=== PATIENT | male | born 1935 | race Caucasian/White ===

== ENCOUNTER 2023-03-17 13:19 | Inpatient (IN) | payer MEDICARE, MEDICAID ==
[~2023-03-17] VITALS: Ht 162.6 cm; Wt 66.2 kg
[2023-03-17] MEDS ORDERED: IV NS 0.9% 500 ML BAG IV ONE (13:30)
[2023-03-17] MEDS ORDERED: POLY17PO4 PO (14:08)
[2023-03-17] MEDS ORDERED: BISA10SU11 RC (14:08)
[2023-03-17] MEDS ORDERED: CLOP75TA15 PO (14:08)
[2023-03-17] MEDS ORDERED: MONT10TA22 PO (14:08)
[2023-03-17] MEDS ORDERED: TIMO5DRO18 EACHEYE (14:08)
[2023-03-17] MEDS ORDERED: APIX2.5T PO (14:08)
[2023-03-17] MEDS ORDERED: LISI10TA29 PO (14:08)
[2023-03-17] MEDS ORDERED: INSU100V7 SQ (14:08)
[2023-03-17] MEDS ORDERED: LIDO30AD10 TP (14:08)
[2023-03-17] MEDS ORDERED: ASCO-352 PO (14:08)
[2023-03-17] MEDS ORDERED: MAG30ORA PO (14:08)
[2023-03-17] MEDS ORDERED: RANO500T6 PO (14:08)
[2023-03-17] MEDS ORDERED: GLUC1KIT SQ (14:08)
[2023-03-17] MEDS ORDERED: MULT-594 PO (14:08)
[2023-03-17] MEDS ORDERED: MELA5TAB PO (14:08)
[2023-03-17] MEDS ORDERED: TOLT2TAB2 PO (14:08)
[2023-03-17] MEDS ORDERED: EPIN0.3P3 IM (14:08)
[2023-03-17] MEDS ORDERED: CLON0.1T PO (14:08)
[2023-03-17] MEDS ORDERED: GABA300C PO (14:08)
[2023-03-17] MEDS ORDERED: AMIO200T7 PO (14:08)
[2023-03-17] MEDS ORDERED: DIVA125T32 PO (14:08)
[2023-03-17] MEDS ORDERED: ALBU2.5V38 IH (14:08)
[2023-03-17] MEDS ORDERED: MAGN400O6 PO (14:08)
[2023-03-17] MEDS ORDERED: DOCU-141 PO (14:08)
[2023-03-17] MEDS ORDERED: ATOR10TA PO (14:08)
[2023-03-17 14:34] LABS: BASOPHILS % (AUTO) 0.6 % (0.0-2.0); EOSINOPHILS % (AUTO) 0.5 % (0.0-6.0); HEMATOCRIT 47 % (39-51); HEMOGLOBIN 16.6 g/dL (13.5-17.5); LYMPHOCYTES # (AUTO) 1.2 K/uL (0.8-4.8); LYMPHOCYTES % (AUTO) 16.5 % (20.0-44.0); MEAN CORPUSCULAR HEMOGLOBIN 31 PG (26.0-33.0); MEAN CORPUSCULAR HGB CONC 35 g/dl (31.0-36.0); MEAN CORPUSCULAR VOLUME 89 fL (80-96); MONOCYTES # (AUTO) 0.9 K/uL (0.1-1.30); NEUTROPHILS # (AUTO) 5.1 K/uL (1.8-8.9); NEUTROPHILS % (AUTO) 70.4 % (43.0-81.0); PLATELET COUNT (AUTO) 297 K/uL (150-450); RED BLOOD CELL COUNT(AUTO) 5.27 MIL/uL (4.5-6.0); WHITE BLOOD COUNT (AUTO) 7.2 K/uL (4.3-11.0)
[2023-03-17 14:57] LABS: CALCIUM, SERUM 10.2 mg/dL (8.5-10.1); CARBON DIOXIDE 27 mmol/L (21-32); CHLORIDE 103 mmol/L (98-107); CREATININE 1.9 mg/dL (0.6-1.3); GLUCOSE 137 mg/dL (74-106); POTASSIUM 4.6 mmol/L (3.5-5.1); SODIUM SERUM 140 mmol/L (136-145); UREA NITROGEN, BLOOD 35 mg/dL (7-18)
[2023-03-17] MEDS ORDERED: MORPHINE SULFATE INJ 2 MG/ML DISP.SYRIN IV PRN (15:00)
[2023-03-17] MEDS ORDERED: CLONIDINE HCL 0.1 MG TABLET PO PRN (15:00)
[2023-03-17] MEDS ORDERED: BISACODYL SUPP (10 MG) 10 MG/SUPP.RECT SUPP.RECT RC PRN (15:00)
[2023-03-17] MEDS ORDERED: MAG HYDROX/AL HYDROX/SIMETH 30 ML UDC PO PRN ×2 (15:00)
[2023-03-17] MEDS ORDERED: Z GUARD REMEDY 4 OZ OINT TP PRN (15:00)
[2023-03-17] MEDS ORDERED: POLYETHYLENE GLYCOL 3350 17 GM POWD.PACK PO PRN (15:00)
[2023-03-17] MEDS ORDERED: HYDROCODONE/APAP 5/325MG TABLET PO PRN (15:00)
[2023-03-17] MEDS ORDERED: MAGNESIUM HYDROXIDE 30 ML UDC PO PRN (15:00)
[2023-03-17] MEDS ORDERED: TRAMADOL HCL 50 MG TABLET PO PRN (15:00)
[2023-03-17] MEDS ORDERED: ONDANSETRON HCL/PF 4 MG/2 ML VIAL IVP PRN (15:00)
[2023-03-17] MEDS ORDERED: ACETAMINOPHEN 325 MG TABLET PO PRN (15:00)
[2023-03-17 15:01] LABS: ALANINE AMINOTRANSFERASE 47 U/L (12-78); ALBUMIN 3.6 g/dL (3.4-5.0); ALKALINE PHOSPHATASE 98 U/L (46-116); ASPARTATE AMINOTRANSFERASE 46 U/L (15-37); BILIRUBIN,DIRECT 0.2 mg/dL (0.0-0.2); BILIRUBIN,TOTAL 0.4 mg/dL (0.2-1.0); LIPASE 33 U/L (16-77); TOTAL PROTEIN, SERUM 8.3 g/dL (6.4-8.2)
[2023-03-17] MEDS: TOLTERODINE 2 MG TABLET PO SCH (17:00)
[2023-03-17 20:00] VITALS: BP 144/55; TEMP 97.8; O2SAT 94
[2023-03-17] MEDS: GABAPENTIN 300 MG CAPSULE PO SCH (21:07)
[2023-03-17] MEDS: DIVALPROEX SODIUM 125 MG TABLET.DR PO SCH (21:07)
[2023-03-17] MEDS: RANOLAZINE 500 MG TAB.ER.12H PO SCH (21:07)
[2023-03-17] MEDS: APIXABAN 2.5 MG TABLET PO SCH (21:09)
[2023-03-17] MEDS: DOCUSATE SODIUM 100 MG CAPSULE PO SCH (22:44)
[2023-03-17] MEDS: MONTELUKAST SODIUM (10MG) 10 MG TABLET PO SCH (22:44)
[2023-03-17] MEDS ORDERED: TOLTERODINE 2 MG CAP.SR PO ONE (23:05)
[2023-03-18] MEDS: IV NS 0.9% 1,000 ML IV PRN (07:02)
[2023-03-18] MEDS: CLOPIDOGREL BISULFATE 75 MG TABLET PO SCH ×2 (08:10→08:42)
[2023-03-18] MEDS: GABAPENTIN 300 MG CAPSULE PO SCH ×4 (08:10→17:35)
[2023-03-18] MEDS: DIVALPROEX SODIUM 125 MG TABLET.DR PO SCH ×4 (08:10→17:35)
[2023-03-18] MEDS: LIDOCAINE 5% (PATCH) 1 EA PATCH TP SCH ×2 (08:10→08:44)
[2023-03-18] MEDS: ASCORBIC ACID 500 MG TABLET PO SCH ×2 (08:10→08:42)
[2023-03-18] MEDS: APIXABAN 2.5 MG TABLET PO SCH ×2 (08:21→17:36)
[2023-03-18] MEDS: RANOLAZINE 500 MG TAB.ER.12H PO SCH ×3 (08:23→17:35)
[2023-03-18] MEDS: AMIODARONE HCL 200 MG TABLET PO SCH (08:23)
[2023-03-18] MEDS: TOLTERODINE 2 MG TABLET PO SCH ×4 (08:44→17:35)
[2023-03-18] MEDS ORDERED: LISINOPRIL (10MG) 10 MG TABLET PO SCH (09:00)
[2023-03-18 11:43] LABS: BASOPHILS # (AUTO) 0.1 K/uL (0.0-0.2); BASOPHILS % (AUTO) 0.8 % (0.0-2.0); EOSINOPHILS % (AUTO) 0.1 % (0.0-6.0); HEMATOCRIT 42 % (39-51); HEMOGLOBIN 14.6 g/dL (13.5-17.5); LYMPHOCYTES # (AUTO) 1.1 K/uL (0.8-4.8); LYMPHOCYTES % (AUTO) 10.8 % (20.0-44.0); MEAN CORPUSCULAR HEMOGLOBIN 32 PG (26.0-33.0); MEAN CORPUSCULAR HGB CONC 35 g/dl (31.0-36.0); MEAN CORPUSCULAR VOLUME 91 fL (80-96); MONOCYTES % (AUTO) 9.9 % (2.0-12.0); NEUTROPHILS # (AUTO) 7.8 K/uL (1.8-8.9); NEUTROPHILS % (AUTO) 78.4 % (43.0-81.0); PLATELET COUNT (AUTO) 258 K/uL (150-450); RED CELL DISTRIBUTION WIDTH 14.8 % (11.5-15.0); WHITE BLOOD COUNT (AUTO) 9.9 K/uL (4.3-11.0)
[2023-03-18 11:53] LABS: CALCIUM, SERUM 8.9 mg/dL (8.5-10.1); CARBON DIOXIDE 28 mmol/L (21-32); CHLORIDE 108 mmol/L (98-107); CREATININE 1.5 mg/dL (0.6-1.3); GLUCOSE 174 mg/dL (74-106); POTASSIUM 4.3 mmol/L (3.5-5.1); SODIUM SERUM 141 mmol/L (136-145); UREA NITROGEN, BLOOD 35 mg/dL (7-18)
[2023-03-18] MEDS: ALPRAZOLAM 0.5 MG TABLET PO PRN ×2 (13:30→22:44)
[2023-03-18] MEDS ORDERED: DEXTROSE 50%-WATER 50 ML DISP.SYRIN IV PRN (15:00)
[2023-03-18 16:11] VITALS: BP 128/83; TEMP 97.7; O2SAT 100
[2023-03-18] MEDS: BLOOD SUGAR DIAGNOSTIC 1 EACH STRIP VI SCH ×2 (16:48→21:26)
[2023-03-18] MEDS: *INSULIN REGULAR(HUMULIN R)HUM 100 UNIT/ML VIAL SQ PRN ×2 (16:49→21:26)
[2023-03-18 20:00] VITALS: BP 98/85; TEMP 98.2; O2SAT 94
[2023-03-18] MEDS: DOCUSATE SODIUM 100 MG CAPSULE PO SCH (21:01)
[2023-03-18] MEDS: MONTELUKAST SODIUM (10MG) 10 MG TABLET PO SCH (21:01)
[2023-03-19] MEDS: IV NS 0.9% 1,000 ML IV PRN (00:08)
[2023-03-19] MEDS: BLOOD SUGAR DIAGNOSTIC 1 EACH STRIP VI SCH ×4 (06:30→22:13)
[2023-03-19] MEDS: INSULIN REGULAR, HUMAN 100 UNIT/ML 3 ML VIAL SQ PRN (06:31)
[2023-03-19 07:01] LABS: BASOPHILS # (AUTO) 0.1 K/uL (0.0-0.2); BASOPHILS % (AUTO) 0.6 % (0.0-2.0); HEMATOCRIT 40 % (39-51); HEMOGLOBIN 13.9 g/dL (13.5-17.5); LYMPHOCYTES # (AUTO) 1.7 K/uL (0.8-4.8); LYMPHOCYTES % (AUTO) 18.8 % (20.0-44.0); MEAN CORPUSCULAR HEMOGLOBIN 32 PG (26.0-33.0); MEAN CORPUSCULAR HGB CONC 34 g/dl (31.0-36.0); MEAN CORPUSCULAR VOLUME 92 fL (80-96); MONOCYTES % (AUTO) 11.8 % (2.0-12.0); NEUTROPHILS # (AUTO) 6.1 K/uL (1.8-8.9); NEUTROPHILS % (AUTO) 68.8 % (43.0-81.0); PLATELET COUNT (AUTO) 236 K/uL (150-450); RED BLOOD CELL COUNT(AUTO) 4.38 MIL/uL (4.5-6.0); RED CELL DISTRIBUTION WIDTH 14.9 % (11.5-15.0); WHITE BLOOD COUNT (AUTO) 8.8 K/uL (4.3-11.0)
[2023-03-19 07:42] LABS: APPEARANCE,URINE CLOUDY (CLEAR); BILIRUBIN,URINE NEGATIVE (NEGATIVE); BLOOD, URINE NEGATIVE Ery/uL (NEGATIVE); COLOR,URINE YELLOW (YELLOW); KETONES,URINE TRACE mg/dL (NEGATIVE); LEUKOCYTE ESTERASE ,URINE 2+ (NEGATIVE); NITRITE, URINE POSITIVE (NEGATIVE); PH,URINE 5.5 (5.0-8.0); PROTEIN,URINE TRACE mg/dl (NEGATIVE); UGLUCOSE NEGATIVE (NEGATIVE); UROBILINOGEN,URINE 0.2 EU/dL (0.2)
[2023-03-19 08:00] VITALS: BP 149/60; TEMP 99.9; O2SAT 94
[2023-03-19 08:06] LABS: ADD URINE CULTURE YES; BACTERIA,URINE Few /HPF (None Seen); EOSINOPHIL,URINE None Seen; RBC,URINE 0-2 /HPF (0-2); SQUAMOUS EPITHELIAL CELL,UR Rare /HPF (None Seen)
[2023-03-19 08:21] LABS: ALBUMIN 2.7 g/dL (3.4-5.0); BILIRUBIN,TOTAL 0.3 mg/dL (0.2-1.0); CALCIUM, SERUM 9.1 mg/dL (8.5-10.1); CREATININE 1.3 mg/dL (0.6-1.3); MAGNESIUM 1.8 mg/dL (1.8-2.4); PHOSPHORUS 3.7 mg/dL (2.5-4.9); POTASSIUM 4.5 mmol/L (3.5-5.1); TOTAL PROTEIN, SERUM 6.8 g/dL (6.4-8.2)
[2023-03-19 08:39] LABS: CREATININE, URINE 103.8 MG/DL (30.0-125.0); URINE TOTAL PROTEIN 46.7 mg/dL (0-11.9)
[2023-03-19] MEDS: ALBUTEROL FS 2.5 MG/3 ML VIAL.NEB IH PRN (09:27)
[2023-03-19 09:29] VITALS: O2SAT 99
[2023-03-19 09:39] VITALS: O2SAT 99
[2023-03-19] MEDS: ASCORBIC ACID 500 MG TABLET PO SCH (09:58)
[2023-03-19] MEDS: RANOLAZINE 500 MG TAB.ER.12H PO SCH ×2 (09:58→17:37)
[2023-03-19] MEDS: CLOPIDOGREL BISULFATE 75 MG TABLET PO SCH (09:58)
[2023-03-19] MEDS: AMIODARONE HCL 200 MG TABLET PO SCH (09:58)
[2023-03-19] MEDS: GABAPENTIN 300 MG CAPSULE PO SCH ×2 (09:58→17:37)
[2023-03-19] MEDS: APIXABAN 2.5 MG TABLET PO SCH ×2 (09:59→17:38)
[2023-03-19] MEDS: DIVALPROEX SODIUM 125 MG TABLET.DR PO SCH ×3 (09:59→17:37)
[2023-03-19] MEDS: TOLTERODINE 2 MG TABLET PO SCH ×2 (10:00→17:39)
[2023-03-19] MEDS: LIDOCAINE 5% (PATCH) 1 EA PATCH TP SCH (10:01)
[2023-03-19 16:00] VITALS: BP 148/77; TEMP 100.6; O2SAT 92
[2023-03-19 20:00] VITALS: BP 150/53; TEMP 97.9; O2SAT 94
[2023-03-19] MEDS: MONTELUKAST SODIUM (10MG) 10 MG TABLET PO SCH (21:46)
[2023-03-19] MEDS: DOCUSATE SODIUM 100 MG CAPSULE PO SCH (21:46)
[2023-03-19] MEDS: *INSULIN REGULAR(HUMULIN R)HUM 100 UNIT/ML VIAL SQ PRN (22:13)
[2023-03-20 00:17] VITALS: O2SAT 94
[2023-03-20] MEDS: ALBUTEROL FS 2.5 MG/3 ML VIAL.NEB IH PRN (00:22)
[2023-03-20 00:27] VITALS: O2SAT 97
[2023-03-20] MEDS: BLOOD SUGAR DIAGNOSTIC 1 EACH STRIP VI SCH ×2 (06:59→12:07)
[2023-03-20] MEDS: INSULIN REGULAR, HUMAN 100 UNIT/ML 3 ML VIAL SQ PRN ×2 (07:00→12:09)
[2023-03-20 07:30] VITALS: BP 111/91; TEMP 99.1; O2SAT 84
[2023-03-20 08:30] VITALS: BP 111/91
[2023-03-20] MEDS: DIVALPROEX SODIUM 125 MG TABLET.DR PO SCH ×2 (08:30→12:14)
[2023-03-20] MEDS: AMIODARONE HCL 200 MG TABLET PO SCH (08:30)
[2023-03-20] MEDS: APIXABAN 2.5 MG TABLET PO SCH (08:31)
[2023-03-20] MEDS: CLOPIDOGREL BISULFATE 75 MG TABLET PO SCH (09:00)
[2023-03-20] MEDS: LIDOCAINE 5% (PATCH) 1 EA PATCH TP SCH (09:00)
[2023-03-20] MEDS: ASCORBIC ACID 500 MG TABLET PO SCH (09:00)
[2023-03-20] MEDS: RANOLAZINE 500 MG TAB.ER.12H PO SCH (09:00)
[2023-03-20] MEDS: GABAPENTIN 300 MG CAPSULE PO SCH (09:00)
[2023-03-20] MEDS: TOLTERODINE 2 MG TABLET PO SCH (09:00)
[2023-03-21 10:09] LABS: PTH, INTACT 44 pg/mL (15-65)
[2023-03-22 05:12] LABS: *SPE ALBUMIN 2.9 g/dL (2.9-4.4); *SPE ALPHA-1-GLOBULIN 0.2 g/dL (0.0-0.4); *SPE ALPHA-2-GLOBULIN 0.9 g/dL (0.4-1.0); *SPE GLOBULIN, TOTAL 2.9 g/dL (2.2-3.9); *SPE M-SPIKE Not Observed g/dL (Not Observed); *SPE PROTEIN TOTAL 5.8 g/dL (6.0-8.5); *SPEGAMMA GLOBULIN 0.7 g/dL (0.4-1.8)
== END 2023-03-20 17:00 | DRG 682 ==
LOC: ER 13:19 → MED 19:20
PROVIDERS: ADMIT Internal Medicine; ATTEND Internal Medicine
DX: N17.0 Acute kidney failure with tubular necrosis (principal); G93.41 Metabolic encephalopathy; E86.0 Dehydration; R62.7 Adult failure to thrive; E11.22 Type 2 diabetes mellitus with diabetic chronic kidney disease; E78.5 Hyperlipidemia, unspecified; G89.29 Other chronic pain; I25.10 Atherosclerotic heart disease of native coronary artery without angina pectoris; I25.2 Old myocardial infarction; I48.91 Unspecified atrial fibrillation; N18.9 Chronic kidney disease, unspecified; Z79.01 Long term (current) use of anticoagulants; Z95.0 Presence of cardiac pacemaker; M89.8X9 Other specified disorders of bone, unspecified site; Z90.49 Acquired absence of other specified parts of digestive tract; I12.9 Hypertensive chronic kidney disease with stage 1 through stage 4 chronic kidney disease, or unspecified chronic kidney disease; E11.42 Type 2 diabetes mellitus with diabetic polyneuropathy; R53.1 Weakness; Z68.25 Body mass index [BMI] 25.0-25.9, adult; K29.70 Gastritis, unspecified, without bleeding; R10.9 Unspecified abdominal pain; Z79.4 Long term (current) use of insulin; N20.0 Calculus of kidney; N28.1 Cyst of kidney, acquired
CPT/HCPCS: 36415; 71045-TC; 76770-TC; 80048-TC; 80053-TC; 80076-TC; 81001; 82550-TC; 82570-TC; 82962-TC; 83690-TC; 83735-TC; 83970; 84100-TC; 84155; 84165; 84300-TC; 85025-TC; 87081-TC; 87086-TC; 94799-TC; 97110-TC; 97112-TC; 97530-TC; A4223; G0378; J1815; J7030; J7040